=== PATIENT | male | born 1965 | race Caucasian/White ===

== ENCOUNTER 2022-11-29 10:01 | Outpatient (CLI) | payer MEDICAID, SELFPAY ==
--- NOTE | 2022-11-29 10:10 | MR_ITS ---
WS: [id number] MRI RIGHT SHOULDER HISTORY: PAIN IN R SHOULDER/STIFFINESS COMPARISON: None available. TECHNIQUE: Multiplanar sequences of the shoulder joint are submitted. Moderate AC joint arthritis. Osteophyte and soft tissue encroachment upon the supraspinatus. No signi ficant subacromial impingement. Increase fluid through the AC ligament. Small amount of fluid in the subacromial and subdeltoid bursa. No os acromion. Increase fluid in the biceps tendon sheath. Moderate-sized tear involving the insertion site of the supraspinatus tendon. Tear extends to both th e articular and bursal surfaces of the tendon. There is additional marked tendinopathy and thickening of the tendon more proximally. Retraction by only 1.0 cm. Infraspinatus and subscapularis tendons ar e intact. Glenohumeral joint effusion. There is distention of the axillary pouch. Additional edema over the lat eral humeral head just deep to the deltoid muscle. No labral tear identified. MR/MR shoulder RT wo con* [id number] IMPRESSION: 1. Moderate AC joint arthritis with fluid along the AC ligament. 2. Subacromial and subdeltoid bursal distention. 3. Fluid distended axillary pouch. 4. Moderate-sized insertion tear supraspinatus tendon involving both the bursa l and articular surfaces of the tendon with only minimal retraction. Additional marked tendinopathy in the supraspinatus.
== END 2022-11-29 10:02 | disposition home or self-care (01) ==
PROVIDERS: PCP Nurse Practitioner; Visit Provider Nurse Practitioner
DX: M13.811 Other specified arthritis, right shoulder; M75.101 Unspecified rotator cuff tear or rupture of right shoulder, not specified as traumatic
CPT/HCPCS: 73221

== ENCOUNTER → 2022-12-21 14:19 | Outpatient (BNVA) | payer MEDICAID, SELFPAY | PROVIDERS: PCP Nurse Practitioner; Referring Provider Nurse Practitioner; Visit Provider Student in an Organized Health Care Education/Training Program | DX: M75.101 Unspecified rotator cuff tear or rupture of right shoulder, not specified as traumatic (principal); M19.011 Primary osteoarthritis, right shoulder; M25.819 Other specified joint disorders, unspecified shoulder; M75.41 Impingement syndrome of right shoulder; M75.21 Bicipital tendinitis, right shoulder | CPT/HCPCS: 73030 ==

== ENCOUNTER 2023-01-23 07:29 | Day surgery (SDC) | payer MEDICAID, SELFPAY ==
[2023-01-23] VITALS (12 sets, daily range): BP systolic 122–164; BP diastolic 72–100; PULSE 77–86; RESP 9–18; TEMP 36.1–36.6; O2SAT 94–100
[2023-01-23] MEDS: acetaminophen 1,000 MG/100 ML PIGGYBACK 400 MG IV (07:54)
[2023-01-23] MEDS: sodium chloride 0.9% 1,000 ML 30 ML IV (08:00)
[2023-01-23] MEDS: ketorolac 30 mg/mL INJ IVP (08:00)
[2023-01-23 08:08] LABS: Glucose Point of Care 203 mg/dL (70-110)
--- NOTE | 2023-01-23 08:18 | ANES.PREANE2 ---
Pre-Anesthetic Assessment Height/Weight: Height 1.75 m Weight 73.482 kg Temp Pulse Resp BP Pulse Ox O2 Del Method 97 F L 85 16 161/89 99 01/23/23 07:43 01/23/23 07:43 01/23/23 07:43 01/23/23 07:43 01/23/23 07:43 01/23/23 07:43 Preop Diagnosis: Right rotator cuff tear, right biceps tendinitis, subacromial impingement, Operation Date: 01/23/23 09:15 Proposed Procedures p [right shoulder diagnostic [id number] and 33442,M75.101, M19.019,M75.41,M75.21(Right) - DO lc Newby arthroscopic rotator rotator cuff repair subacromial decompression acromioclavicular joint resection possible biceps tenotomy(Right) - Roque Jay DO Familial anesthetic complications: None Was Beta Silvina taken within 24 hours: N/A Was Clonidine taken within 24 hours: N/A Last intake: Intake Last Liquid Date 01/22/23 Last Liquid Time 21:30 Last Solid Date 01/22/23 Last Solid Time 19:30 Social No alcohol and No tobacco Exam alert, oriented x 3, clear to auscultation bilaterally and regular rate & rhythm Airway Mallampati: Class II Dentition: full Metabolic Diabetes Mellitus Anesthetic Plan ASA status: 3 Anesthesia: General and Regional (specify below) Risk of > 500 ml blood loss (7ml/kg in children): No Medications/Allergies Home Medications Medication Instructions Recorded Confirmed Last Taken Type diclofenac sodium 50 mg 50 mg PO BID 12/21/22 01/22/23 01/22/23 History tablet,delayed release glipizide 10 mg tablet 10 mg PO BID 12/21/22 01/22/23 01/22/23 History metformin 500 mg tablet 500 mg PO BID 12/21/22 01/22/23 01/22/23 History dapagliflozin 10 mg tablet 5 mg PO DAILY 01/22/23 01/22/23 01/22/23 History ([facility]) Allergies Allergy/AdvReac Type Severity Reaction Status Date / Time No Known Allergies Allergy Verified 01/23/23 07:40 Current Medications Generic Name Dose Route Start Last Admin Trade Name Freq PRN Reason Stop Dose Admin Sodium Chloride 1,000 mls @ 30 mls/hr 01/23/23 07:45 01/23/23 08:00 Sodium Chloride 0.9% IV 01/24/23 07:44 30 mls/hr .Q24H MITALI Administration PFSH Anesthesia Medical History (Updated 12/25/22 @ 23:44 by Roque Jay DO) AC (acromioclavicular) joint arthritis Biceps tendinitis of right shoulder Rotator cuff tear, right Subacromial impingement of right shoulder Social History (Updated 12/21/22 @ 14:12 by Ann Penn LPN) Smoking and tobacco status: never smoked Alcohol intake: current Alcohol intake frequency: few times a month Data Anesthesia Cardiac Studies: No Data to Display
--- NOTE | 2023-01-23 08:19 | ANES.PROC ---
Anesthesia Procedures Procedure/Date: 01/23/23 Nerve Block ^: Nerve Block 1: Main Anesthesia: general anesthesia Time Out Performed: Yes Consent: requested by attending/covering physician, from patient, risks and benefits reviewed and patient agrees to proceed Nerve block location: interscalene (R) Anesthesia monitors applied: pulse oximetry, EKG, BP cuff and oxygen Nerve block position: semi sitting Anesthetic Used: ropivicaine 0.5% (20 ml) and with decadron (4 mg) Ultrasound used to: recognize landmarks and visualize and ID interscalene groove Nerve Stimulator Used?: No Interscalene/Femoral BLK: 2 stimuplex 22 g needle used for position and inplane approach, visualize local anesthetic spread and no vascular puncture identified Injection: neg aspiration of heme Patient Tolerated Procedure: well Complications: none
--- NOTE | 2023-01-23 09:16 | W.PM.OPSFHP ---
Same Day Surgery H&P Indication for Procedure/HPI DATE OF PROCEDURE: January 23, 2023 CHIEF COMPLAINT/INDICATIONFOR SURGICAL PROCEDURE: Right shoulder rotator cuff tear, AC joint arthritis subacromial impingement and biceps tendinitis PREOP DIAGNOSIS: Right rotator cuff tear, right biceps tendinitis, subacromial impingement, PLANNED PROCEDURE: Operation Date: 01/23/23 09:15 Proposed Procedures p [right shoulder diagnostic [id number] [place] 29885,M75.101, M19.019,M75.41,M75.21(Right) - Roque Jay DO s arthroscopic rotator rotator cuff repair subacromial decompression acromioclavicular joint resection possible biceps tenotomy(Right) - Roque Jay DO New 57 year old male presentswith right shoulder pain. Onset 2-3 years ago which began with dull ache with reaching for objects. Pain is dull and achey but will increase to sharp pain with extension. Unable to raise arm above head without severe pain. Patient denies any prior injections. Pt. states radiates into elbow and fingers.? Had MRI 11/29/22.? Referred by primary care for evaluation and treatment recommendations. Medications/Allergies* Home Medications Medication Instructions Recorded Confirmed Type diclofenac sodium 50 mg 50 mg PO BID 12/21/22 01/22/23 History tablet,delayed release glipizide 10 mg tablet 10 mg PO BID 12/21/22 01/22/23 History metformin 500 mg tablet 500 mg PO BID 12/21/22 01/22/23 History dapagliflozin 10 mg tablet 5 mg PO DAILY 01/22/23 01/22/23 History ([facility]) Allergies/Adverse Reactions Allergy/AdvReac Type Severity Reaction Status Date / Time No Known Allergies Allergy Verified 01/23/23 07:40 Current Medications: Generic Name Dose Route Start Last Admin Trade Name Freq PRN Reason Stop Dose Admin Sodium Chloride 1,000 mls @ 30 mls/hr 01/23/23 07:45 01/23/23 08:00 Sodium Chloride 0.9% IV 01/24/23 07:44 30 mls/hr .Q24H MITALI Administration Pertinent History/Comorbid Conditions* Medical History (Updated 12/25/22 @ 23:44 by Roque Jay DO) AC (acromioclavicular) joint arthritis Biceps tendinitis of right shoulder Rotator cuff tear, right Subacromial impingement of right shoulder Social History Smoking and tobacco status: never smoked Alcohol intake: current Alcohol intake frequency: few times a month Pertinent Exam Findings alert, operative site marked and procedure specific exam findings ? Patient has noticeable tenderness to palpation over the AC joint as well as over the bicipital groove and the lateral aspect of the shoulder over the leading edge of the acromion near the rotator cuff insertion.? On examination patient has decreased active range of motion and can only forward flex up to roughly 80 degrees.? He can passively range to 180 degrees.? He has a positive drop arm test on the right side.? He has noticeable 4 out of 5 weakness of Jobes examination with pain and discomfort.? He has pain with speeds examination over the bicipital groove as well as a positive [place]'s test on examination.? With elbows at the side patient has 4+ out of 5 weakness of external rotation and 5 out of 5 strength on internal rotation.? Patient has positive Hawking's impingement on examination.? Patient has positive crossover test with pain at the AC joint. Recommendations Surgery/Procedure today Other Plans: Plan for OR today for right shoulder diagnostic and surgical arthroscopy with AC joint resection, subacromial decompression, arthroscopic rotator cuff repair, possible biceps tenotomy. Patient understands risk benefits complication alternatives surgical nonsurgical treatment options. Understanding risk with surgery agrees to proceed with surgical intervention. All questions answered. Coding Level of Care Code Acute Code for Chg Fwd
[2023-01-23] MEDS: ceFAZolin 2,000 MG in sodium chloride 0.9% (plus) 50 ML 100 MG IV (10:32)
--- NOTE | 2023-01-23 12:53 | P.OP_ITS ---
Operative Report Date of procedure: January 23, 2023 Pre-op diagnosis: Preop Diagnosis Right rotator cuff tear, right biceps tendinitis , subacromial impingement, Procedure: Post-op diagnosis: Right shoulder labral tearing Right shoulder biceps tendon tear Right shoulder rotator cuff tear Right shoulder AC joint arthritis Right shoulder subacromial bursitis Procedure done: Right shoulder diagnostic and surgical arthroscopy with labral debridement, biceps tenotomy, arthroscopic rotator cuff repair, AC joint resection, subacromial decompression(acromioplasty and bursectomy) Surgeon: Roque Jay DO Estimated blood loss: 25 mL IV fluids: 1000 mL Complications: None Condition: stable Disposition: same day Brief History: Patient been seen and worked up in the outpatient setting for right shoulder p ain. Patient had MRI findings which are listed below.? Patient's failed conservative treatment and has substantial weakness to his rotator cuff.? We talked about treatment options far as nonoperative and operative intervention..? We talked about risk benefits complication alternatives surgical nonsurgical treatment options.? Understanding his risk of surgery she agrees to proceed with surgical intervention.? All questions have been answered at this time.? Patient elects proceed with surgery and consent obtained in office. MRI findings right shoulder IMPRESSION: ? 1.? Moderate AC joint arthritis with fluid along the AC ligament. 2.? Subacromial and subdeltoid bursal distention. 3.? Fluid distended axillary pouch. 4.? Moderate-sized insertion tear supraspinatus tendon involving both the bursal and articular surfaces of the tendon with only minimal retraction. Additional marked tendinopathy in the supraspinatus . Procedure: Patient seen evaluated in the preoperative holding area.? Consent reviewed and signed with patient.? Once again reviewed patient's MRI results as well as planned surgical intervention.? Correct extremity marked.? Patient seen evaluated by anesthesia department received regional anesthesia.? Once ready for surgery was taken back to the operative suite.? Patient then subsequently underwent anesthesia per the anesthesia department was transported onto the OR table.? Patient was then placed into a lateral decubitus position with a beanbag and was appropriately secured to the bed.? All bony prominences well-padded.? Patient then had the right upper extremity was then prepped and draped in standard orthopedic fashion.? Patient received appropriate preoperative antibiotics.? Final timeout performed. The right upper extremity was then held in hanging from traction utilizing sterile technique.? Next started with standard diagnostic and surgical arthroscopy with posterior portal position introduced arthroscope into the glenohumeral joint.? Visualized the glenohumeral joint I then introduced a spinal needle within the rotator cuff interval to confirm appropriate anterior portal placement.? Once this was confirmed I then made my small incision and then introduced my arthroscopic shaver into the glenohumeral joint.? After thorough debridement was clearly evident patient had a significant erythema as well as positive liftoff sign of the biceps anchor and biceps tendon tear as it was pulled within the joint.? Decision at this time was made to perform a biceps tenotomy.? Introduced a thermal wand and a biceps tenotomy was performed to completion? With appropriate release. ? Next there was significant labral tearing with no complete detachment of the anterior labrum.? I then subsequently utilized a a arthroscopic shaver and thermal wand to perform a labral debridement.? This point time I then visualized the glenohumeral joint.? The glenohumeral joint was found to have grade I chondromalacia throughout.? Axillary recess was free from loose bodies. Next a visualized the rotator cuff superiorly and there was found to be a moderate tear.? I utilized a spinal needle to loren this location.? This completed my work within the glenohumeral joint all fluid was suctioned free of the joint.? Next I reintroduced the arthroscope posteriorly.? And went to the subacromial space.? I established my lateral working portal at the site of which my spinal needle was marking of the rotator cuff tear.? Thermal wand was then introduced laterally and then I subsequently performed extensive bursectomy of the subacromial space.? Patient had anterior bone spur.? At this point time I proceeded with my AC joint resection thermal wand was used and track to the anterior edge of the acromion and then tracked all the way to the AC joint.? Once identified the AC joint this was very arthritic in nature.? Thermal wand was placed anteriorly to establish appropriate plane for AC joint resection.? Once appropriate margins and anterior inferior and anterior capsule was released I then introduced arthroscopic shaver and a bur and performed AC joint resection of both the acromion to coplane at the AC joint and a distal clavicle resection was then performed totaling 1 cm in size and was confirmed.? This completed my AC joint resection and I then introduced the arthroscopic shaver laterally while continuing to view posteriorly.? I then performed an acromioplasty to complete my subacromial decompression prior to fixing the rotator cuff tear.? Next the arthroscopic shaver was then used and identified the tear of the supraspinatus tendon at its insertion site with minimal retraction.? I debrided the edges as well as decorticated the footprint of the rotator cuff with my arthroscopic shaver.? Next introduced thermal wand to identify and loren my appropriate position for my bone anchors.? Tear was medium in size and at this point time would be accommodating for Arthrex double row speed bridge technique.? Once my footprint was appropriately decorticated and prepared I then subsequently utilized a spinal needle for an accessory portal to place my anchors for my medial row.? Once I like my position a small incision was made and a punch was then placed in appropriate position right off the articular margin first with my anterior and the next with my posterior anchors these were loaded with 2 Arthrex suture tapes.? These were impacted to appropriate depth.? Next these were sequentially withdrawn through the lateral portal and loaded on an Arthrex scorpion and were passed sequentially from anterior to posterior and pulled out the anterior portal.? Next I then grabbed both sutures 1 and 3 in these were loaded into an Arthrex 4.75 swivel lock.? I then identified my appropriate position from anterior lateral row anchor these were loaded punch was then placed and under appropriate tension free placement I advance my 4.75 Arthrex swivel lock. This had excellent fixation and all excess sutures were cut with an arthroscopic cutter. Next I then loaded the sutures 2 and 4 into a Arthrex 4.75 swivel lock and subsequently utilizing my punch placed my lateral row posterior anchor in appropriate position being sure to not over tension the rotator cuff and lay this appropriately on its anatomic footprint.? Swivel lock was then advanced into appropriate position and had excellent fixation.? All excess suture was removed with arthroscopic cutter.? This completed my Arthrex speed bridge double row repair.? I then switched the arthroscope to the lateral portal to confirm this tension-free repair.? Next I then introduced the arthroscopic shaver posteriorly to complete my subacromial decompression appropriate complaining all the way up to the lateral edge of the acromion.? This completed the surgery.? All fluid was suctioned from the shoulder.? All instruments were removed.? The lateral incision was then closed with nylon stitches.? As well as the portal sites closed with portal nylon stitches.? Xeroform 4 x 4's ABD and tape was then applied to the right shoulder and was placed into a shoulder abduction pillow sling for rotator cuff repair.? Patient was then awakened from anesthesia and then taken back to PACU in stable condition.? Patient tolerated procedure without any issues. Disposition: Patient taken back in stable condition recovering well.? Dressings on in place clean dry and intact.? Will be nonweightbearing to the right upper extremity.? Follow rotator cuff repair protocol.? Patient to follow-up with me in the office in 2 weeks.? Patient will receive appropriate discharge instruction as well as pain medication postoperatively.? All questions answered.? We will contact the office for any questions or concerns.
--- NOTE | 2023-01-23 12:53 | PM.OP2 ---
Brief Operative Note Date of procedure: 01/23/23 Pre-op diagnosis: Right shoulder AC joint arthritis, rotator cuff tear, biceps tendinitis, estevez Post-op diagnosis: same (Subacromial impingement and labral tearing) Procedure Done: Right shoulder diagnostic and surgical arthroscopy with biceps tenotomy, labral debridement, AC joint resection, subacromial decompression, rotator cuff repair Surgeon: Roque Jay Estimated blood loss (mL): 25 Complications: None Post-op Plan: Patient taken to PACU in stable condition recovering well. Sling with abduction pillow on in place. Dressing clean dry and intact will receive appropriate discharge instruction as well as pain medication postoperatively. We will follow-up with me in the office in 2 weeks. Condition: stable Disposition: same day Coding Level of Care Code Acute Code for Kaela Chow
--- NOTE | 2023-01-23 12:53 | PM.PACU ---
PACU note Narrative: Patient taken to PACU in stable condition recovering well. Sling on in place dressings clean dry and intact. Patient does have right shoulder distention secondary to fluid from arthroscopy this extends into the supraclavicular region. No subcutaneous crepitus. Compartments are soft and compressible. Block on in place unable to assess motor or sensory. Distal pulses are palpable. Exam: awake Disposition: discharged
--- NOTE | 2023-01-23 13:25 | PC.NURSE ---
patient with subq fluid face, neck, and chest region post procedure. Airway patient. No complaints
[2023-01-23] MEDS: ondansetron 2 mg/ML SDV 2 mL 4 MG IVP (13:30)
--- NOTE | 2023-01-23 13:36 | PC.NURSE ---
Patient nauseated after transfer from [facility]. Zofran given. Accepting nurse updated
--- NOTE | 2023-01-23 13:49 | PC.NURSE ---
sent message to dr. stallings office for 2 week follow up.
--- NOTE | 2023-01-23 14:35 | ANE.PACU2 ---
Inpatient post-anesthesia follow up: Airway intact: Yes Vital signs: Temperature 97.8 F Pulse Rate 82 Respiratory Rate 16 Blood Pressure 144/100 Pulse Oximetry 98 Oxygen Delivery Me thod Room Air Oxygen Flow Rate 8 Fraction of Inspir ed Oxygen Hydration adequate: Yes Nausea and vomiting: No Pain level: 1 Mental status: Baseline
[2023-01-23 15:12] LABS: Glucose Point of Care 203 mg/dL (70-110)
== END 2023-01-23 15:45 | disposition home or self-care (01) ==
PROVIDERS: PCP Nurse Practitioner; Visit Provider Student in an Organized Health Care Education/Training Program
PROC: (CPT 29805; principal; 2023-01-23 09:05)
PROC: (CPT 29827; 2023-01-23 09:05)
DX: S43.491A Other sprain of right shoulder joint, initial encounter (principal); S46.211A Strain of muscle, fascia and tendon of other parts of biceps, right arm, initial encounter; M75.101 Unspecified rotator cuff tear or rupture of right shoulder, not specified as traumatic; M75.21 Bicipital tendinitis, right shoulder; M75.51 Bursitis of right shoulder; M19.011 Primary osteoarthritis, right shoulder; M25.811 Other specified joint disorders, right shoulder; E11.9 Type 2 diabetes mellitus without complications; Z79.84 Long term (current) use of oral hypoglycemic drugs; X58.XXXA Exposure to other specified factors, initial encounter
CPT/HCPCS: 29822; 29826; 29827; 29828; 36416; 82962; C1713; J0131; J0690; J1100; J1885; J2370; J2405; J2704; J2710; J2795; J3010; J3490; J7030

== ENCOUNTER 2023-02-20 06:00 | Outpatient (RCR) | payer MEDICAID, SELFPAY | END 2023-03-18 23:59 | disposition home or self-care (01) | LOC: GPT 06:00 | PROVIDERS: Visit Provider Student in an Organized Health Care Education/Training Program | DX: G89.29 Other chronic pain (principal); M25.511 Pain in right shoulder | CPT/HCPCS: 97110; 97112; 97140; 97161 ==

== ENCOUNTER 2023-03-19 06:00 | Outpatient (RCR) | payer MEDICAID, SELFPAY | END 2023-04-18 23:59 | disposition home or self-care (01) | LOC: GPT 06:00 | PROVIDERS: Visit Provider Student in an Organized Health Care Education/Training Program | DX: M25.511 Pain in right shoulder (principal); G89.29 Other chronic pain | CPT/HCPCS: 97110; 97112; 97140 ==

== ENCOUNTER 2023-04-19 06:00 | Outpatient (RCR) | payer MEDICAID, SELFPAY | END 2023-05-18 23:59 | disposition home or self-care (01) | LOC: GPT 06:00 | PROVIDERS: Visit Provider Student in an Organized Health Care Education/Training Program | DX: M25.511 Pain in right shoulder (principal); G89.29 Other chronic pain | CPT/HCPCS: 97110; 97140; 97530 ==

== ENCOUNTER 2023-05-19 06:00 | Outpatient (RCR) | payer MEDICAID, SELFPAY | END 2023-05-23 23:59 | disposition home or self-care (01) | LOC: GPT 06:00 | PROVIDERS: Visit Provider Student in an Organized Health Care Education/Training Program | DX: M25.512 Pain in left shoulder (principal); G89.29 Other chronic pain | CPT/HCPCS: 97110; 97112; 97164 ==

== ENCOUNTER 2023-10-31 10:27 | Day surgery (SDC) | payer MEDICAID, SELFPAY ==
[2023-10-31] VITALS (13 sets, daily range): BP systolic 133–169; BP diastolic 74–91; PULSE 88–106; RESP 7–25; TEMP 36.2–36.4; O2SAT 94–100
[2023-10-31] MEDS: sodium chloride 0.9% 1,000 ML 30 ML IV (10:52)
[2023-10-31] MEDS: scopolamine 1.5 Patch 1 PATCH TRANSDERMA (10:52)
[2023-10-31] MEDS: acetaminophen 1,000 MG/100 ML PIGGYBACK 400 MG IV (10:52)
[2023-10-31] MEDS: ketorolac 30 mg/mL INJ IVP (10:52)
--- NOTE | 2023-10-31 11:04 | P.ANESASSM_ITS ---
Pre-Anesthetic Assessment Height/Weight: Height 1.75 m Weight 72.121 kg Temp Pulse Resp BP Pulse Ox O2 Del Method 97.6 F 88 16 155/83 98 Room Air 10/31/23 10:36 10/31/23 10:36 10/31/23 10:36 10/31/23 10:36 10/31/23 10:36 10/31/23 10:45 Operation Date: 10/31/23 12:25 Proposed Procedures p Carpal Tunnel Release: RIGHT CARPAL TUNNEL RELEASE(Right) - Roque Misty, DO s Cubital Tunnel Release: RIGHT CUBITAL TUNNEL RELEASE POSSIBLE ULNAR NERVE TRANSPOSITION(Right) - Roque Misty, DO s Trigger Finger Release: RIGHT MIDDLE FINGER TRIGGER RELEASE(Right) - Roque Guayanilla, DO Familial anesthetic complications: None Was Beta Silvina taken within 24 hours: N/A Was Clonidine taken within 24 hours: N/A Last intake: Intake Last Liquid Date 10/30/23 Last Liquid Time 20:00 Last Solid Date 10/30/23 Last Solid Time 20:00 Social No alcohol and No tobacco Exam alert, oriented x 3, clear to auscultation bilaterally and regular rate & rhythm Airway Mallampati: Class II Dentition: chipped Metabolic Diabetes Mellitus Anesthetic Plan ASA status: 3 Anesthesia: MAC Risk of > 500 ml blood loss (7ml/kg in children): No Medications/Allergies Home Medications Medication Instructions Recorded Confirmed Last Taken Type diclofenac sodium 50 mg 50 mg PO BID 12/21/22 10/30/23 10/24/23 History tablet,delayed release glipizide 10 mg tablet 10 mg PO BID 12/21/22 10/30/23 10/30/23 History metformin 500 mg tablet 500 mg PO BID 12/21/22 10/30/23 10/30/23 History dapagliflozin propanediol 10 mg 5 mg PO DAILY 01/22/23 10/30/23 10/30/23 History tablet (Farxiga) ibuprofen 800 mg tablet 800 mg PO Q8H #90 tabs 09/07/23 10/31/23 10/30/23 Rx Allergies Allergy/AdvReac Type Severity Reaction Status Date / Time No Known Allergies Allergy Verified 09/07/23 09:24 Current Medications Generic Name Dose Route Start Last Admin Trade Name Freq PRN Reason Stop Dose Admin Sodium Chloride 1,000 mls @ 30 mls/hr 10/31/23 10:45 10/31/23 10:52 Sodium Chloride 0.9% IV 11/01/23 10:44 30 mls/hr .Q24H MITALI Administration PFSH Anesthesia Medical History AC (acromioclavicular) joint arthritis Biceps tendinitis of right shoulder Rotator cuff tear, right Subacromial impingement of right shoulder Social History Smoking and tobacco/nicotine status: never used tobacco/nicotine Alcohol intake: current Alcohol intake frequency: few times a month Data Anesthesia Cardiac Studies: No Data to Display
--- NOTE | 2023-10-31 11:14 | W.PM.OPSFHP ---
Same Day Surgery H&P Indication for Procedure/HPI DATE OF PROCEDURE: October 31, 2023 CHIEF COMPLAINT/INDICATIONFOR SURGICAL PROCEDURE: Right carpal tunnel syndrome, right cubital tunnel syndrome, right middle finger trigger PREOP DIAGNOSIS: Right carpal tunnel syndrome, right cubital tunnel syndrome, right middle f PLANNED PROCEDURE: Operation Date: 10/31/23 12:25 Proposed Procedures p Carpal Tunnel Release: RIGHT CARPAL TUNNEL RELEASE(Right) - Roque Jay DO s Cubital Tunnel Release: RIGHT CUBITAL TUNNEL RELEASE POSSIBLE ULNAR NERVE TRANSPOSITION(Right) - Roque Jay DO s Trigger Finger Release: RIGHT MIDDLE FINGER TRIGGER RELEASE(Right) - Roque Jay DO Medications/Allergies* Home Medications Medication Instructions Recorded Confirmed Type diclofenac sodium 50 mg 50 mg PO BID 12/21/22 10/30/23 History tablet,delayed release glipizide 10 mg tablet 10 mg PO BID 12/21/22 10/30/23 History metformin 500 mg tablet 500 mg PO BID 12/21/22 10/30/23 History dapagliflozin propanediol 10 mg 5 mg PO DAILY 01/22/23 10/30/23 History tablet (Farxiga) Allergies/Adverse Reactions Allergy/AdvReac Type Severity Reaction Status Date / Time No Known Allergies Allergy Verified 09/07/23 09:24 Current Medications: Generic Name Dose Route Start Last Admin Trade Name Freq PRN Reason Stop Dose Admin Sodium Chloride 1,000 mls @ 30 mls/hr 10/31/23 10:45 10/31/23 10:52 Sodium Chloride 0.9% IV 11/01/23 10:44 30 mls/hr .Q24H MITALI Administration Pertinent History/Comorbid Conditions* Medical History (Updated 09/11/23 @ 23:14 by Roque Jay DO) Biceps tendinitis of right shoulder Rotator cuff tear, right Subacromial impingement of right shoulder AC (acromioclavicular) joint arthritis Social History Smoking and tobacco/nicotine status: never used tobacco/nicotine Alcohol intake: current Alcohol intake frequency: few times a month Pertinent Exam Findings alert, oriented x 3, operative site marked and procedure specific exam findings Examination right upper extremity?negative Spurling's negative C-spine pain with range of motion Patient has positive Tinel's and positive elbow flexion test at the right elbow over the cubital tunnel Patient has noticeable intrinsic weakness as well as mild intrinsic atrophy noted Positive Tinel's, positive Phalen's, positive median nerve compression test at the wrist over the carpal tunnel Thenar weakness and subtle atrophy noted Patient has tenderness to palpation over the right middle finger A1 roger, with mild mechanical triggering noted as well as palpable nodule Recommendations Surgery/Procedure today Other Plans: Plan to proceed to the OR today for right carpal tunnel release right cubital tunnel release with possible ulnar nerve transposition and right middle finger trigger release Patient understands anginous procedure risk benefits complication alternatives of surgery and this proceed with surgical intervention all questions answered. Coding Level of Care Code Acute Code for Chg Claudine
[2023-10-31] MEDS: ceFAZolin 2,000 MG in sodium chloride 0.9% (plus) 50 ML 100 MG IV (12:46)
--- NOTE | 2023-10-31 13:46 | P.OP_ITS ---
Operative Report Date of procedure: October 31, 2023 Surgeon: Roque Jay DO Professor Of Environmental Engineering: Enio Jay PA-C: PA was necessary for assistance in this case with hand positioning to execute the procedure, retraction and protection of neurovascular structures as well as to assist with wound closure and dressing application. Procedure: Preoperative diagnosis: Right Cubital tunnel syndrome Right middle finger trigger Right carpal tunnel syndrome Postop Diagnosis: Same Procedure done: Right?cubital?tunnel tunnel release (ulnar nerve decompression at elbow) Right carpal tunnel release Right Middle finger trigger release Surgeon: Roque Jay DO Estimated blood loss: 5 mL Tourniquet? 23 minutes IV fluids: 600 mL Complications: None Findings: See operative report narrative Condition: stable Disposition: same day Brief History: Patient's been seen and worked up in the outpatient setting and findings consistent with preoperative diagnosis.? Patient has right carpal tunnel syndrome as well as right?cubital?tunnel syndrome and right middle finger trigger which has been worked up in the outpatient setting has physical exam findings consistent with this as well as confirmatory nerve conduction/EMG nerve conduction study consistent with diagnosis.? Patient's failed conservative treatment.? As result through shared decision making agreed to proceed with? right carpal tunnel and right?cubital?tunnel release possible transposition and right middle finger trigger release. we talked about treatment options as far as nonoperative and operative intervention.? Understands risk benefits complication alternatives surgical nonsurgical treatment options.? Understanding his risks he agrees to proceed with surgical intervention. Understanding these risks he agrees to proceed with surgery.? Consent obtained in office. Procedure: Patient seen evaluate in the preoperative holding area.? Consent was reviewed and signed with patient.? Correct extremity marked.? Patient seen evaluated by anesthesia department once cleared for surgery was then taken back to the operative suite placed in supine position all bony prominences well-padded patient properly secured to bed.? right upper extremity placed onto armboard.? Nonsterile tourniquet applied right upper arm.? Patient then underwent anesthesia per the anesthesia department.? Patient's right upper extremity was then prepped and draped in standard orthopedic fashion.? Final timeout performed.? Patient received appropriate preoperative antibiotics. Esmarch was used exsanguinate the right upper extremity.? Tourniquet was insufflated to 250 mmHg. I started with the carpal tunnel release first.? I made a standard open carpal tunnel release starting with the distal most extent in the palm at the Oh's cardinal line and the incision line was made in line with the fourth ray and ended just distal to the wrist crease.? Sharp scalpel incision was made through skin and subcutaneous tissue I then utilizing self retainer then began to dissect with dissection scissors split longitudinally the palmar fascia.? Next I then utilizing my assistant service manager Alrfeddaever retractors subsequently utilizing scalpel feathered through the palmaris brevis as well as through the transverse carpal ligament distally.? Once I encountered the floor of the transverse carpal ligament and entered into the carpal tunnel I then switched to dissection scissors.? Carefully released the distal extent of the transverse carpal ligament to the palmar fat.? Care was to protect the recurrent branch and not injured this during this part of the case.? Next I then placed a O'Neals underneath the transverse carpal ligament proximally to protect the nerve in the carpal tunnel contents.? And then I subsequently under loupe magnification utilize my dissection scissors to release the transverse carpal ligament into the antebrachial fascia under direct visualization with care to keep my scissors with a curved ulnarly away from the palmar cutaneous branch.? The transverse carpal was then completely decompressed proximally and a O'Neals was then placed both distally and proximally throughout the carpal tunnel and had complete decompression of the nerve.? The nerve did appear to have hourglass shape as it went through the carpal tunnel.? With significant irritation noted around the nerve.? No masses were noted within the contents of the carpal tunnel.? This completed the carpal tunnel release and then I subsequently irrigated the wound bed and placed a wet Ray-Bereket into the incision for later closure. Next marked out the landmarks of the right elbow of the medial epicondyle and olecranon and made a curvilinear incision following the course of the ulnar nerve at the medial aspect of the elbow.? Sharp scalpel incision was made through skin and subcutaneous tissue.? Next I switched to Littler dissection scissors and spread in plane of the medial antebrachial cutaneous nerve branching which was protected throughout this part of the dissection.? Then I directly came down over the fascia and identified the 2 heads of the FCU fascia and split this right in the middle and subsequently identified my ulnar nerve d istally.? This was then completely released distally under direct visualization and loupe magnification.? Once the nerve was then identified I then subsequently tracked this proximally and released this through Frederick's ligament as well as complete decompression of the nerve proximally all the way past the intermuscular septum.? The nerve was completely released and decompressed both proximally and distally.? Ulnar nerve neurolysis performed and completed both proximally and distally with dissection scissors.? I then took the elbow through range of motion and there was no instability or subluxating of the ulnar nerve.? This completed?cubital?tunnel release.? A standard oblique incision was made centering over the A1 roger following patient's flexor crease.? Sharp scalpel incision was made only through skin and then switched to Littler dissection scissors and spread longitudinally directly over the flexor tendon sheath.? I then mobilized both radially and ulnarly and Kasdan retractors were used and placed by my assistant service manager to protect neurovascular bundle.? Next I visualized the A1 roger and this was incised with a scalpel.? I then switched to dissection scissors and released the A1 roger both proximally as well as distally to its entirety.? Significant tendon sheath fluid was noted consistent with inflammation.? Inflammation of the flexor tendons noted, no tear.? At this point I utilized a rag nail and pulled the tendons FDS and FDP out of the incision and no?triggering was noted.? Finger taken through range of motion and no mechanical triggering noted. ?Next the wound bed was thoroughly irrigated.? Tourniquet was deflated.? Hemostasis was satisfactory at the?cubital?tunnel release surgery site. I then inspected the incisions and this was found to have satisfactory hemostasis and all this was maintained through bipolar electrocautery.? At this point time I sequentially closed?cubital?tunnel site with 3-0 Vicryl suture in a running horizontal mattress nylon stitch.? ? The carpal tunnel release and trigger release surgery was then closed in standard interrupted mattress fashion.? Dressing was Xeroform 4 x 4's ABD Curlex soft roll and an Pierre wrap has a bulky soft dressing. Patient was then awakened from anesthesia and taken to PACU in stable condition. Disposition: Patient taken to PACU in stable condition recovering well.? Patient will receive appropriate discharge instructions as well as pain medication postoperatively.? We will follow-up with me in the office in 2 weeks.? Patient understands agrees with current plan.? All questions answered.? He understands if any questions or concerns and contact the office for follow-up appointment..
--- NOTE | 2023-10-31 14:10 | P.BOP_ITS ---
Date of Procedure: [October 31, 2023] Surgeon: [Dr. Jay DO] Veterinary Anatomist(s): [Enio Jay PA-C] Procedure(s) performed: [Right carpal tunnel release, right middle trigger finger release, right cubital tunnel release] Findings of the procedure(s): [Right carpal tunnel syndrome, right cubital tunnel syndrome, right middle finger trigger] Estimated blood loss: [5 ml] Specimen(s) removed: [n/a] Post-operative diagnosis: [Right carpal tunnel syndrome, right cubital tunnel syndrome, right middle finger trigger]
--- NOTE | 2023-10-31 14:23 | PM.PACU ---
PACU note Narrative: Patient is a 58-year-old male that just underwent a right carpal tunnel release, right cubital tunnel release and right middle finger release. Patient transferred to PACU in stable condition. Pain is well controlled. Dressing on hand is dry and in place. Patient's fingers are warm and well-perfused. Patient can wiggle fingers. normal cap refill under 2 seconds. Patient has normal elbow range of motion. Unable to assess sensation due to residual localized anesthetic. Exam: awake Disposition: discharged
[2023-10-31] MEDS: fentaNYL 50 mcg/mL INJ 2mL IVP (14:34)
[2023-10-31] MEDS: ondansetron 2 mg/ML SDV 2 mL 4 MG IVP ×2 (14:58→15:16)
--- NOTE | 2023-10-31 15:00 | ANE.PACU2 ---
Inpatient post-anesthesia follow up: Airway intact: Yes Vital signs: Temperature 97.2 F Pulse Rate 106 Respiratory Rate 14 Blood Pressure 157/80 Pulse Oximetry 98 Oxygen Delivery Me thod Room Air Oxygen Flow Rate 6 Fraction of Inspir ed Oxygen Hydration adequate: Yes Nausea and vomiting: No Pain level: 1 Mental status: Baseline
--- NOTE | 2023-10-31 15:01 | PC.NURSE ---
1457 - pt became nauseated while rolling into room 1 - phase 2 - zofran ivp given per this nurse in phase 2
[2023-10-31] MEDS: HYDROcodone-acetaminophen 5-325 mg Tablet 1 TAB PO (15:16)
== END 2023-10-31 16:00 | disposition home or self-care (01) ==
PROVIDERS: PCP Nurse Practitioner; Visit Provider Student in an Organized Health Care Education/Training Program
PROC: (CPT 64721; principal; 2023-10-31 12:15)
PROC: (CPT 64718; 2023-10-31 12:15)
PROC: (CPT 26055; 2023-10-31 12:15)
DX: G56.01 Carpal tunnel syndrome, right upper limb (principal); G56.21 Lesion of ulnar nerve, right upper limb; M65.331 Trigger finger, right middle finger; E11.9 Type 2 diabetes mellitus without complications
CPT/HCPCS: 26055; 64718; 64721; J0131; J0690; J1100; J1885; J2405; J2704; J2795; J3010; J7030

== ENCOUNTER 2023-11-13 11:51 | Emergency (ER) | payer MEDICAID, SELFPAY ==
[2023-11-13 12:10] VITALS: BP 154/91; PULSE 98; RESP 15; TEMP 36.8; O2SAT 99; BMI 23.3
--- NOTE | 2023-11-13 12:34 | USCV_ITS ---
Washington Ivy Age: 58 Gender: M : 1965 Exam Date: 11/13/2023 12:51 Ordering Phys: Hudson Rocha MD Technologist: Juan C Gil [place] [facility] [place] Indication: rt arm swelling post surg 1 week ago PROCEDURES: Venous duplex imaging was performed in only the right upper extremity. The following venous structures were evaluated: internal jugular vein, subclavian vein, axillary vein, and brachial veins. In addition, the basilic vein, cephalic vein, radial vein, and ulnar vein. Serial compression, augmentation maneuvers, and spectral Doppler flow evaluation were performed. FINDINGS: No evidence of deep vein thrombosis or superficial thrombophlebitis in the right upper extremity. PRELIM GIVEN TO DR NAGY CONCLUSIONS No evidence of thrombus of the right upper extremity veins. Yossi Olivarez MD (Electronically Signed) Final Date: 13 November 2023 16:31 S
[2023-11-13] MEDS: HYDROcodone-acetaminophen 5-325 mg Tablet 1 TAB PO (12:41)
--- NOTE | 2023-11-13 12:50 | ED_ITS ---
HPI - Extremity Problem 2 General: Chief complaint: Extremity Problem,Nontraumatic Stated complaint: pain from right ear to finger tips Time Seen by Provider: 11/13/23 12:29 Source: patient Mode of arrival: ambulatory Limitations: no limitations History of Present Illness: 58-year-old male states that he had carp al tunnel surgery along with an ulnar release 12 days ago. States he had some increasing pain in that right arm he states he feels like his hands been swollen as well. He denies any fevers he rates his pain a 4 out of 10 denies any erythema or drainage from the incisions. Associated symptoms: Deny chest pain, fever(s) or rash Review of Systems 2 Const: Denies: fever(s), chills, body aches or change in appetite Eyes: Denies: blurry vision or eye discomfort ENMT: Denies: throat pain or dental pain Card: Denies: chest pain Resp: Denies: dyspnea GI: Denies: abdominal pain, nausea, vomiting or diarrhea Musc: Reports: extremity pain; Denies: neck pain or back pain Skin/Breast: Denies: rash Neuro: Denies: headache(s) PFSH ED 2 PFSH: Medical History AC (acromioclavicular) joint arthritis Biceps tendinitis of right shoulder Rotator cuff tear, right Subacromial impingement of right shoulder Social History Smoking and tobacco/nicotine status: never used tobacco/nicotine Alcohol intake: current Alcohol intake frequency: few times a month Physical Exam 2 Const: COMMON NORMALS: no acute distress, patient oriented x3 and healthy appearing HENMT: COMMON NORMALS: normocephalic and atraumatic HEAD & SCALP: n ormocephalic and atraumatic Eye: COMMON NORMALS: conjunctivae normal CONJUNCTIVA: Yes conjunctivae normal Neck/C-Spine: COMMON NORMALS: supple Chest: COMMONS NORMALS: normal inspection of the chest Resp: COMMON NORMALS: normal respiratory effort Extremity: COMMON NORMALS: full ROM NARRATIVE EXTREMITY EXAM: Patient's incisions are clean dry intact elbow and wrist sutures are still in place no erythema no redness to the arm some slight swelling to the arm distal pulses intact. Neuro: COMMON NORMALS: patient oriented x3, moves all extremities and no focal motor deficits Psych: COMMON NORMALS: mental status grossly normal, Normal thought process present and cooperative THOUGHT PROCESS: Normal thought process present Skin: COMMON NORMALS: no rashes or lesions noted and no wounds GENERAL SKIN EXAM: no rashes or lesions noted Course 2 Vital Signs: Vital signs: Vital Signs Temperature 98.2 F 11/13/23 12:10 Pulse Rate 98 11/13/23 12:10 Respiratory Rate 15 11/13/23 12:10 Blood Pressure 154/91 11/13/23 12:10 Pulse Oximetry 99 11/13/23 12:10 Oxygen Delivery Me thod Room Air 11/13/23 12:10 MDM - Extremity (Nontraumatic) Medical Decision Making Patient presents here with pain in his right arm some slight swelling likely postop who is well-appearing here his DVT study is negative white count is normal no signs of cellulitis he sees his surgeon Dr. Jay on Sunday he stable for discharge follow-up as scheduled return if worsening he understands agrees to plan. Medical Records I reviewed the patient's medical records. Lab Data I reviewed the patient's lab results. 11/13/23 12:56 Laboratory Results WBC 9.42 10^3/uL (3.29-11.43) 11/13/23 12:56 RBC 5.04 10^6/uL (3.85-5.65) 11/13/23 12:56 Hgb 14.30 g/dL (11.27-16.99) 11/13/23 12:56 Hct 42.3 % (37-53) 11/13/23 12:56 MCV 83.9 fl (82-101) 11/13/23 12:56 MCH 28.4 pg (27-33) 11/13/23 12:56 MCHC 33.8 g/dL (30-55) 11/13/23 12:56 RDW 12.7 % (12.1-15.1) 11/13/23 12:56 Plt Count 258 10^3/cmm (157-399) 11/13/23 12:56 MPV 9.0 fL (7.4-10.4) 11/13/23 12:56 Neut % (Auto) 61.3 % 11/13/23 12:56 Lymph % (Auto) 29.3 % 11/13/23 12:56 [place] % (Auto) 8.2 % 11/13/23 12:56 Eos % (Auto) 0.7 % 11/13/23 12:56 Baso % (Auto) 0.3 % 11/13/23 12:56 Neut # (Auto) 5.77 10^3/uL (1.8-7.7) 11/13/23 12:56 Lymph # (Auto) 2.8 10^3/uL (0.8-4.8) 11/13/23 12:56 [place] # (Auto) 0.8 10^3/uL (0.2-0.9) 11/13/23 12:56 Eos # (Auto) 0.1 10^3/uL (0.0-0.8) 11/13/23 12:56 Baso # (Auto) 0.0 10^3/uL (0.0-0.1) 11/13/23 12:56 Nucleated RBC % (auto) 0 % 11/13/23 12:56 Nucleated RBCs # 0.0 /100WBC 11/13/23 12:56 All radiology interpretation(s) finalized by discharge Discharge Plan Discharge Patient Disposition: Home Clinical Impression: Arm pain, right Condition: Stable Prescriptions: No Action diclofenac sodium 50 mg tablet,delayed release (DR/EC) 50 mg PO BID glipizide 10 mg tablet 10 mg PO BID metformin 500 mg tablet 500 mg PO BID ibuprofen 800 mg tablet 800 mg PO Q8H Qty: 90 1RF Farxiga 10 mg tablet 5 mg PO DAILY Discharge Orders: Discharge ED (Routine); Ordered 11/13/23 Ordered By: Hudson Rocha Referrals: Nehemiah Woo FNP [Primary Care Provider] - Roque Jay DO [Physician] - 1-3 days Discharge Diet: Advance as tolerated Discharge Activity: Resume usual activity Patient Instructions: Arm Pain (ED) Coding Level of Care Code ED Videographer for Kaela Chow
[2023-11-13 13:03] LABS: Basophils % 0.3 %; Eosinophils # 0.1 10^3/uL (0.0-0.8); Eosinophils % 0.7 %; Hematocrit 42.3 % (37-53); Lymphocytes # 2.8 10^3/uL (0.8-4.8); Lymphocytes % 29.3 %; Mean Corpuscular HGB Conc 33.8 g/dL (30-55); Mean Corpuscular Hemoglobin 28.4 pg (27-33); Mean Corpuscular Volume 83.9 fl (82-101); Monocytes # 0.8 10^3/uL (0.2-0.9); Monocytes % 8.2 %; Neutrophils # 5.77 10^3/uL (1.8-7.7); Neutrophils % 61.3 %; Nucleated Red Blood Cells % 0 %; Platelet Count 258 10^3/cmm (157-399); Red Blood Count 5.04 10^6/uL (3.85-5.65); Red Cell Distribution Width 12.7 % (12.1-15.1); White Blood Count 9.42 10^3/uL (3.29-11.43)
[2023-11-13 13:36] VITALS: O2SAT 98
== END 2023-11-13 13:39 | disposition home or self-care (01) ==
PROVIDERS: Emergency Provider Emergency Medicine; PCP Nurse Practitioner
DX: M79.601 Pain in right arm (principal); Z79.84 Long term (current) use of oral hypoglycemic drugs
CPT/HCPCS: 36415; 85025; 93971; 99284

== ENCOUNTER → 2023-11-16 12:02 | Outpatient (BNVA) | payer MEDICAID, SELFPAY | PROVIDERS: PCP Nurse Practitioner; Visit Provider Physician Assistant | DX: G56.23 Lesion of ulnar nerve, bilateral upper limbs (principal); Z98.890 Other specified postprocedural states | CPT/HCPCS: 73110 ==

== ENCOUNTER → 2024-05-01 09:27 | Outpatient (BNVA) | payer MEDICAID, SELFPAY | PROVIDERS: PCP Nurse Practitioner; Visit Provider Physician Assistant | DX: Z98.890 Other specified postprocedural states; G56.02 Carpal tunnel syndrome, left upper limb; G56.22 Lesion of ulnar nerve, left upper limb | CPT/HCPCS: 73110 ==

== ENCOUNTER → 2024-11-04 08:51 | Outpatient (BNVA) | payer MEDICAID, SELFPAY | PROVIDERS: PCP Nurse Practitioner; Visit Provider Physician Assistant | DX: M25.511 Pain in right shoulder (principal); M75.41 Impingement syndrome of right shoulder | CPT/HCPCS: 73030 ==

== ENCOUNTER 2024-12-09 13:16 | Outpatient (CLI) | payer MEDICARE, MEDICAID, SELFPAY ==
--- NOTE | 2024-12-09 13:19 | MRR_ITS ---
PROCEDURE INFORMATION: Exam: MR Left Lower Extremity Other Than Joint Without and With Contrast; Foot Exam date and time: 12/09/2024 2:09 PM Age: 59 years old Clinical indication: Condition or disease; Patient HX: Open wounds on the 3rd and 4th toes for 3 weeks, possible osteo; Additional info: Cellulitis of left toe/pain in left foot TECHNIQUE: Imaging protocol: Magnetic resonance imaging of the left lower extremity without and with contrast. Exam focused on the foot. Contrast material: MULTIHANCE; Contrast volume: 16 ml; Contrast route: INTRAVENOUS (IV); COMPARISON: No relevant prior studies available. FINDINGS: Bones/joints: There is diffuse fluid like signal changes and enhancement involving the 3rd distal phalanx with adjacent enhancing soft tissue swelling likely secondary to osteomyelitis. Remaining visualized osseous structures are unremarkable. Remaining joint surfaces are preserved. Alignment is maintained. Soft tissues: There is soft tissue swelling and enhancement involving the middle and distal 3rd phalanx. There is no abscess collection. MR/MR foot LT wo/w con [id number] IMPRESSION: Findings consistent with osteomyelitis involving the 3rd distal phalanx.
[2024-12-09] MEDS: gadobenate dimeglumine 20 mL vial IV (14:49)
== END 2024-12-09 13:17 | disposition home or self-care (01) ==
LOC: RAD 13:17
PROVIDERS: PCP Nurse Practitioner; Visit Provider Nurse Practitioner
DX: L03.032 Cellulitis of left toe (principal); M79.672 Pain in left foot; R93.6 Abnormal findings on diagnostic imaging of limbs; M79.89 Other specified soft tissue disorders
CPT/HCPCS: 73720

== ENCOUNTER → 2024-12-11 13:58 | Outpatient (BNVA) | payer MEDICARE, MEDICAID, SELFPAY | PROVIDERS: PCP Nurse Practitioner | DX: E11.52 Type 2 diabetes mellitus with diabetic peripheral angiopathy with gangrene (principal); E11.621 Type 2 diabetes mellitus with foot ulcer; L97.524 Non-pressure chronic ulcer of other part of left foot with necrosis of bone | CPT/HCPCS: 11044; 87070; 87176; 87205; 99213 ==

== ENCOUNTER → 2024-12-15 09:22 | Outpatient (BNVA) | payer MEDICARE, MEDICAID, SELFPAY | PROVIDERS: PCP Nurse Practitioner | DX: E11.621 Type 2 diabetes mellitus with foot ulcer (principal); M86.9 Osteomyelitis, unspecified; L97.529 Non-pressure chronic ulcer of other part of left foot with unspecified severity | CPT/HCPCS: 80053; 84134; 85025; 85651; 86140 ==

== ENCOUNTER → 2024-12-16 14:40 | Outpatient (BNVA) | payer MEDICARE, MEDICAID, SELFPAY | PROVIDERS: PCP Nurse Practitioner; Visit Provider Podiatrist Foot & Ankle Surgery | DX: E11.621 Type 2 diabetes mellitus with foot ulcer; M86.672 Other chronic osteomyelitis, left ankle and foot; L97.526 Non-pressure chronic ulcer of other part of left foot with bone involvement without evidence of necrosis; Z79.84 Long term (current) use of oral hypoglycemic drugs | CPT/HCPCS: 73630; 99203 ==

== ENCOUNTER → 2024-12-18 11:04 | Outpatient (BNVA) | payer MEDICARE, MEDICAID, SELFPAY | PROVIDERS: PCP Nurse Practitioner; Visit Provider Thoracic Surgery (Cardiothoracic Vascular Surgery) | DX: E11.52 Type 2 diabetes mellitus with diabetic peripheral angiopathy with gangrene (principal); E11.621 Type 2 diabetes mellitus with foot ulcer; L97.522 Non-pressure chronic ulcer of other part of left foot with fat layer exposed | CPT/HCPCS: 11042 ==

== ENCOUNTER → 2024-12-30 16:04 | Outpatient (BNVA) | payer MEDICARE, MEDICAID, SELFPAY | PROVIDERS: PCP Nurse Practitioner; Visit Provider Podiatrist Foot & Ankle Surgery | DX: M86.672 Other chronic osteomyelitis, left ankle and foot (principal) | CPT/HCPCS: 99214 ==

== ENCOUNTER 2025-01-12 05:43 | Day surgery (SDC) | payer MEDICARE, MEDICAID, SELFPAY ==
[2025-01-12] VITALS (11 sets, daily range): BP systolic 97–126; BP diastolic 54–76; PULSE 81–97; RESP 12–18; TEMP 36.1–36.5; O2SAT 95–98; BMI 22.7
[2025-01-12] MEDS: gabapentin 300 mg Capsule PO (06:12)
[2025-01-12] MEDS: scopolamine 1 mg PATCH 1 PATCH TRANSDERMA (06:13)
[2025-01-12] MEDS: acetaminophen 1,000 MG/100 ML PIGGYBACK 400 MG IV (06:27)
[2025-01-12] MEDS: sodium chloride 0.9% 1,000 ML 30 ML IV (06:33)
--- NOTE | 2025-01-12 06:40 | W.PM.OPSUD ---
Surgery/Procedure H&P Update DATE OF PROCEDURE: January 12, 2025 DATE H&P PERFORMED: 12/30/24 H&P UPDATE INFORMATION: I have reviewed H&P completed within last 30 days, I have examined patient prior to procedure, No changes to prior documentation and H&P is in [facility] [place] EMR on date indicated PREOP DIAGNOSIS: Osteomyelitis PLANNED PROCEDURE: Operation Date: 01/12/25 07:00 Proposed Procedures p foot third digit partial amputation(Left) - Washington Davis DPM
[2025-01-12] MEDS: ceFAZolin 2,000 mg SDV 2000 MG IVP (06:56)
[2025-01-12] MEDS: BUPivacaine 0.25% INJ 30 mL INJECTION (07:02)
--- NOTE | 2025-01-12 07:20 | ANES.PREANE2 ---
Pre-Anesthetic Assessment Height/Weight: Height 1.75 m Weight 69.853 kg Temp Pulse Resp BP Pulse Ox O2 Del Method 97.2 F L 97 18 116/76 98 Room Air 01/12/25 06:03 01/12/25 06:03 01/12/25 06:03 01/12/25 06:13 01/12/25 06:03 01/12/25 06:35 Preop Diagnosis: Osteomyelitis Operation Date: 01/12/25 07:00 Proposed Procedures p foot third digit partial amputation(Left) - Washington Davis DPM Familial anesthetic complications: PONV, Slow to wake Was Beta Silvina taken within 24 hours: N/A Was Clonidine taken within 24 hours: N/A Last intake: Intake Last Liquid Date 01/11/25 Last Liquid Time 23:30 Last Solid Date 01/11/25 Last Solid Time 20:00 Social No alcohol and No tobacco Exam alert, oriented x 3, clear to auscultation bilaterally and regular rate & rhythm Airway Mallampati: Class II Dentition: other (missing) Metabolic Diabetes Mellitus Neuropsych hx guillain-barre Anesthetic Plan ASA status: 3 Anesthesia: MAC Risk of > 500 ml blood loss (7ml/kg in children): No Medications/Allergies Home Medications ?Medication ?Instructions ?Recorded ?Confirmed ?Last Taken ?Type diabetic shoes with 3 inserts #1 ea 12/16/24 12/30/24 Unknown Rx dapagliflozin propanediol 10 mg 10 mg PO DAILY 01/08/25 01/08/25 01/08/25 History tablet (Farxiga) metformin 500 mg tablet,extended 500 mg PO QID 01/08/25 01/11/25 22:15 History release 24hr (osmotic) pioglitazone 45 mg tablet 45 mg PO DAILY 01/08/25 01/12/25 01/11/25 08:00 History sitagliptin phosphate 100 mg 100 mg PO DAILY 01/08/25 01/08/25 01/08/25 History tablet (Januvia) Allergies Allergy/AdvReac Type Severity Reaction Status Date / Time No Known Allergies Allergy Verified 01/08/25 14:19 Current Medications Generic Name Dose Route Start Last Admin Trade Name Freq PRN Reason Stop Dose Admin Sodium Chloride 1,000 mls @ 30 mls/hr 01/12/25 06:00 01/12/25 06:33 Sodium Chloride 0.9% IV 01/13/25 05:59 30 mls/hr .Q24H MITALI Administration PFSH Anesthesia Medical History Osteomyelitis of third toe of left foot Type 2 diabetes mellitus with foot ulcer Biceps tendinitis of right shoulder Rotator cuff tear, right Subacromial impingement of right shoulder AC (acromioclavicular) joint arthritis Social History Smoking and tobacco/nicotine status: never used tobacco/nicotine Alcohol intake: current Alcohol intake frequency: few times a month Data Anesthesia Cardiac Studies: No Data to Display
--- NOTE | 2025-01-12 07:42 | P.BOP_ITS ---
Date of procedure: 01/12/25 Surgeon name: Dr. Washington Davis DPM Photographic Artist(s) name(s): Everardo Procedure(s) performed: Left foot 3rd digit partial amputation Description of findings: Osteomyelitis distal phalanx left third digit Estimated blood loss: 2 cc Tourniquet time: 17 minutes Specimen(s) removed: Distal phalanx left third digit Post-operative diagnosis: Osteomyelitis
--- NOTE | 2025-01-12 07:43 | PM.OP ---
Operative Report Date of procedure: January 12, 2025 Surgeon: Washington Davis DPM Procedure: Date of procedure: 01/12/25 Pre-op diagnosis: Left 3rd toe osteomyelitis Post-op diagnosis: same Post-op findings: Osteolyelitis left 3rd digit distal phalanx Procedure done: Left digit partial amputation CPT 97623 Implants: none Specimens removed: Left foot 3rd distal phalanx Surgeon: Dr. Washington Davis DPM [employer] Manager: Everardo Estimated blood loss: 2cc Tourniquet time: 17 minutes Complications: none Patient is a 59-year-old male that has a history of left 3rd digit wound with underlying osteomyelitis. The patient has had the aforementioned chief complaint for some time. Conservative treatment measures have been attempted and the patient has opted for surgical intervention at this time. A lengthy discussion regarding the procedure, including risks and complications has been had with the patient and is noted in the recent clinic note. Written and verbal consent have been obtained. All patient questions have been answered to the patient?s satisfaction. No written or verbal guarantees have been given or implied. The patient has been NPO since midnight. The history has been reviewed and the history and physical is current. The signed consent was confirmed and placed in the patient chart. Patient imaging has been reviewed and is consistent with the diagnosis. Under mild sedation, the patient was brought into the operating room and placed on the table in the supine position. IV antibiotics were given by the anesthesia team as preoperative surgical prophylaxis. IV sedation was then performed by the anesthesiateam. A pneumatic tourniquet was then placed about the Left ankle. The operative extremity was then prepped and draped in the usual fashion. The extremity was then elevated and exsanguinated before the tourniquet was inflated to 250mmHg. After inflation, the following procedure was then performed. Attention was directed to the left foot third digit where a fishmouth incision was made distally using a #15 blade. This was full-thickness down to bone. Care was taken to dissect the distal interphalangeal joint using a #15 blade. The distal phalanx was noted to have discoloration, erosive changes consistent with osteomyelitis. The remaining portion of the distal phalanx was passed from the operative field be sent as specimen. Remaining tissue appeared healthy and viable. No other signs of infection. No abscess accumulation. The site was irrigated with sterile saline before attention was directed to closure. Skin was reapproximated using 3-0 nylon in simple erupted fashion. Tourniquet was let down and good hyperemic response was noted to all digits of the left foot. Incision site was dressed with Xeroform, 4 x 4 gauze, Kerlix, Coban. The patient tolerated the procedure and anesthesia well and without complication. The patient was transported from the operating room to the recovery room with vital signs stable and vascular status intact to all digits of the left foot. The patient was given both written and verbal instructions to remain minimally weight bearing to the operative extremity, to keep dressings/splint clean, dry and intact and to take pain medication as directed. The patient will follow-up in the outpatient setting at their scheduled appointment. The patient was discharged with my personal number and was instructed to call if any questions or issues should arise. They were discharged home once anesthesia criteria was met.
--- NOTE | 2025-01-12 07:45 | SUR.PHASEI ---
07;36 RECEIVED PT FROM OR STAFF. AIRWAY PATENT. NSR ON MONITOR. RESPONDS TO VERBAL. VENTILATING WELL. LEFT FOOT ELEVATED.
[2025-01-12 08:28] LABS: Glucose Point of Care 203 mg/dL (70-110)
[2025-01-12 08:28] LABS: Glucose Point of Care 204 mg/dL (70-110)
--- NOTE | 2025-01-12 09:15 | ANE.PACU2 ---
Inpatient post-anesthesia follow up: Airway intact: Yes Vital signs: Temperature 97.6 F Pulse Rate 81 Respiratory Rate 18 Blood Pressure 126/72 Pulse Oximetry 97 Oxygen Delivery Me thod Room Air Oxygen Flow Rate 8 Fraction of Inspir ed Oxygen Hydration adequate: Yes Nausea and vomiting: No Pain level: 1 Mental status: Baseline
== END 2025-01-12 09:14 | disposition home or self-care (01) ==
PROVIDERS: PCP Nurse Practitioner; Visit Provider Podiatrist Foot & Ankle Surgery
PROC: (CPT 28825; principal; 2025-01-12 07:00)
DX: E11.69 Type 2 diabetes mellitus with other specified complication (principal); E11.621 Type 2 diabetes mellitus with foot ulcer; L97.529 Non-pressure chronic ulcer of other part of left foot with unspecified severity; M86.8X7 Other osteomyelitis, ankle and foot; Z79.899 Other long term (current) drug therapy
CPT/HCPCS: 28825; 36416; 82962; 88305; 88311; J0131; J0690; J2371; J2704; J3490; J7030; L3260

== ENCOUNTER → 2025-01-19 14:25 | Outpatient (BNVA) | payer MEDICARE, MEDICAID, SELFPAY | PROVIDERS: PCP Nurse Practitioner; Visit Provider Podiatrist Foot & Ankle Surgery | DX: M86.8X7 Other osteomyelitis, ankle and foot (principal); Z98.890 Other specified postprocedural states; E11.69 Type 2 diabetes mellitus with other specified complication; Z79.84 Long term (current) use of oral hypoglycemic drugs | CPT/HCPCS: 99213 ==

== ENCOUNTER → 2025-01-26 13:35 | Outpatient (BNVA) | payer MEDICARE, MEDICAID, SELFPAY | PROVIDERS: PCP Nurse Practitioner; Visit Provider Podiatrist Foot & Ankle Surgery | DX: M86.8X7 Other osteomyelitis, ankle and foot (principal) | CPT/HCPCS: 99213 ==

== ENCOUNTER → 2025-02-09 13:15 | Outpatient (BNVA) | payer MEDICARE, MEDICAID, SELFPAY | PROVIDERS: PCP Nurse Practitioner; Visit Provider Podiatrist Foot & Ankle Surgery | DX: M86.8X7 Other osteomyelitis, ankle and foot (principal) | CPT/HCPCS: 99213 ==

== ENCOUNTER → 2025-02-17 14:13 | Outpatient (BNVA) | payer MEDICARE, MEDICAID, SELFPAY | PROVIDERS: PCP Nurse Practitioner; Visit Provider Physician Assistant | DX: M75.41 Impingement syndrome of right shoulder (principal) | CPT/HCPCS: 20610; 99213; J3301; J9999 ==

== ENCOUNTER → 2025-03-02 12:55 | Outpatient (BNVA) | payer MEDICARE, MEDICAID, SELFPAY | PROVIDERS: PCP Nurse Practitioner; Visit Provider Podiatrist Foot & Ankle Surgery | DX: G62.9 Polyneuropathy, unspecified (principal); Z89.422 Acquired absence of other left toe(s) | CPT/HCPCS: 99214 ==

== ENCOUNTER → 2025-04-15 08:37 | Outpatient (BNVA) | payer MEDICARE, MEDICAID, SELFPAY | PROVIDERS: PCP Nurse Practitioner; Visit Provider Internal Medicine | DX: E11.9 Type 2 diabetes mellitus without complications (principal); E55.9 Vitamin D deficiency, unspecified; E78.2 Mixed hyperlipidemia | CPT/HCPCS: 80048; 80061; 82043 ==

== ENCOUNTER → 2025-04-16 09:00 | Outpatient (BNVA) | payer MEDICARE, MEDICAID, SELFPAY | PROVIDERS: PCP Nurse Practitioner; Visit Provider Internal Medicine | DX: E11.9 Type 2 diabetes mellitus without complications (principal); E55.9 Vitamin D deficiency, unspecified; E78.2 Mixed hyperlipidemia | CPT/HCPCS: 99214 ==